=== PATIENT | male | born 1965 | race African-American/Black ===

== ENCOUNTER 2017-09-18 12:15 | Emergency (ER) | payer MEDICAID ==
[~2017-09-18] VITALS: Ht 180.3 cm; Wt 82.0 kg
[~2017-09-18 12:15] MED LIST: AMLO10TA80 PO; HYDR100T26 PO; KEPP500 PO; LISI-604 PO; NIFE60TA35 PO; PHEN100C4 PO; REN800 PO
[2017-09-18 14:17] LABS: HEMATOCRIT. 34.4 % (42.0-52.0); HEMOGLOBIN. 10.8 g/dL (14.0-18.0); MEAN CORPUSCULAR HEMOGLOBIN 26.5 pg (28.0-32.0); MEAN CORPUSCULAR VOLUME 84.1 fL (80.0-94.0); MEAN PLATELET VOLUME 8.3 fl (7.4-10.4); PLATELET 79 x1000/uL (130-400); RED BLOOD CELL COUNT 4.08 mill/uL (4.7-6.1); RED CELL DISTRIBUTION WIDTH 19.8 % (11.6-14.6)
[2017-09-18 14:51] LABS: PLATELET ESTIMATE DECREASED
[2017-09-18] MEDS ORDERED: SODIUM POLYSTYRENE SULFONATE 15 G/60 ML BOT PO ONE (16:15)
[2017-09-18 16:39] VITALS: BP 157/87
== END 2017-09-18 16:43 | disposition home or self-care (01) ==
LOC: ER 12:22
DX: R53.1 Weakness (principal); N18.6 End stage renal disease; Z99.2 Dependence on renal dialysis; Z88.5 Allergy status to narcotic agent; Z91.15 Patient's noncompliance with renal dialysis
CPT/HCPCS: 36415; 71045; 80048; 82962; 85025; 99285

== ENCOUNTER 2017-10-24 07:06 | Inpatient (IN) | payer MEDICAID ==
[~2017-10-24] VITALS: Ht 180.3 cm; Wt 82.7 kg
[2017-10-24 08:27] LABS: BG CARBOXYHEMOGLOBIN 1.1 % (0.5-1.5); BG DEOXYHEMOGLOBIN 6.1 % (0.0-5.0); BG HCO3 ACT 18.8 mmol/L (22.0-26.0); BG METHEMOGLOBIN 0.2 % (0.0-1.5); BG OXYGEN SATURATION 93.8 % (92.0-98.5); BG OXYHEMOGLOBIN 92.6 % (94.0-97.0); BG PCO2 34.9 mmHg (35.0-45.0); BG PH 7.349 (7.350-7.450); BG PO2 77.4 mmHg (75.0-100.0); BG SAMPLE SITE RIGHT BRACHIAL; BG TOTAL HEMOGLOBIN 12.9 g/dL (12.0-18.0); BG VENT MODE ROOM AIR
[2017-10-24] MEDS ORDERED: SODIUM BICARBONATE 8.4% 1 MEQ/ML 50ML SYR IV ONE (08:45)
[2017-10-24] MEDS ORDERED: INSULIN REGULAR (HUMULIN R) 300UNITS/3ML IV ONE (09:45)
[2017-10-24] MEDS ORDERED: DEXTROSE 50% WATER 50ML SYRINGE IV ONE (09:45)
[2017-10-24] MEDS ORDERED: CALCIUM CHLORIDE 1GM/10ML SYR IV ONE (09:45)
[2017-10-24] MEDS ORDERED: HEPARIN 100 UNITS/1 ML VIAL IVF STA (10:17)
[2017-10-24 10:54] LABS: HEMATOCRIT. 29.4 % (42.0-52.0); HEMOGLOBIN. 9.2 g/dL (14.0-18.0); MEAN CORPUSCULAR HEMOGLOBIN 25.7 pg (28.0-32.0); MEAN CORPUSCULAR VOLUME 82.1 fL (80.0-94.0); MEAN PLATELET VOLUME 8.8 fl (7.4-10.4); PLATELET 80 x1000/uL (130-400); RED BLOOD CELL COUNT 3.58 mill/uL (4.7-6.1); RED CELL DISTRIBUTION WIDTH 18.6 % (11.6-14.6)
[2017-10-24 10:59] LABS: CHLORIDE 102 mEq/L (98-107)
[2017-10-24 11:01] LABS: INR 1.1; PROTHROMBIN TIME 11.8 sec (9.4-11.6)
[2017-10-24 11:07] LABS: PHOSPHORUS 5.6 mg/dL (2.5-4.9)
[2017-10-24] MEDS ORDERED: LIDOCAINE HCL 1% 20ML VIAL (Pyxis) INJ ONE (11:18)
[2017-10-24] MEDS ORDERED: SODIUM BICARBONATE 4% (2.4MEQ) 5ML VIAL IV ONE (11:18)
[2017-10-24 12:03] LABS: PLATELET ESTIMATE DECREASED
[2017-10-24] MEDS ORDERED: PHENYTOIN SODIUM 1,000 MG in SODIUM CHLORIDE 0.9% 100 ML IV ONE (12:15)
[2017-10-24] MEDS ORDERED: HYDROCODONE/ACETAMINOPHEN 5/325MG TABLET PO PRN (13:45)
[2017-10-24] MEDS ORDERED: CLONIDINE 0.1MG TABLET PO PRN (13:45)
[2017-10-24 14:30] VITALS: BP 157/84
[2017-10-24 15:08] VITALS: BP 157/84
[2017-10-24] MEDS: DIPHENHYDRAMINE 50MG/ML VIAL IV PRN ×2 (15:47→22:03)
[2017-10-24] MEDS: MORPHINE SULFATE 4 MG/ML CPJ (NOT FOR IM USE) IV PRN ×2 (15:48→22:03)
[2017-10-24 16:00] VITALS: BP 149/80
[2017-10-24] MEDS: SEVELAMER CARBONATE 800 MG TABLET PO SCH (18:10)
[2017-10-24] MEDS: ONDANSETRON HCL 4MG/2ML VIAL IV PRN (19:16)
[2017-10-24 20:00] VITALS: BP 129/67
[2017-10-24] MEDS: LEVETIRACETAM 500MG TABLET PO SCH (21:00)
[2017-10-24] MEDS: PHENYTOIN SODIUM EXTENDED 100MG CAPSULE PO SCH (22:00)
[2017-10-25] VITALS: BP 101/51
[2017-10-25] MEDS ORDERED: MORPHINE SULFATE 4 MG/ML CPJ (NOT FOR IM USE) IV NR (00:30)
[2017-10-25 04:00] VITALS: BP 140/75
[2017-10-25] MEDS: PHENYTOIN SODIUM EXTENDED 100MG CAPSULE PO SCH ×3 (06:05→20:21)
[2017-10-25] MEDS: MORPHINE SULFATE 4 MG/ML CPJ (NOT FOR IM USE) IV PRN ×3 (06:05→20:13)
[2017-10-25] MEDS: DIPHENHYDRAMINE 50MG/ML VIAL IV PRN ×2 (06:06→20:12)
[2017-10-25 06:56] LABS: HEMATOCRIT. 27.3 % (42.0-52.0); HEMOGLOBIN. 8.8 g/dL (14.0-18.0); MEAN CORPUSCULAR HEMOGLOBIN 26.4 pg (28.0-32.0); MEAN CORPUSCULAR VOLUME 82.3 fL (80.0-94.0); MEAN PLATELET VOLUME 9.3 fl (7.4-10.4); PLATELET 81 x1000/uL (130-400); RED BLOOD CELL COUNT 3.32 mill/uL (4.7-6.1); RED CELL DISTRIBUTION WIDTH 18.8 % (11.6-14.6)
[2017-10-25] MEDS: SEVELAMER CARBONATE 800 MG TABLET PO SCH ×3 (07:47→18:15)
[2017-10-25 08:00] VITALS: BP 130/70
[2017-10-25] MEDS: FOLIC ACID/VITAMIN B COMP W-C TABLET PO SCH (09:32)
[2017-10-25] MEDS: LEVETIRACETAM 500MG TABLET PO SCH ×2 (09:33→20:21)
[2017-10-25 10:31] LABS: PLATELET ESTIMATE DECREASED
[2017-10-25 12:00] VITALS: BP 120/64
[2017-10-25 16:00] VITALS: BP 113/57
[2017-10-25 20:00] VITALS: BP 121/66
[2017-10-26] VITALS: BP 123/72
[2017-10-26 04:00] VITALS: BP 144/81
[2017-10-26] MEDS: MORPHINE SULFATE 4 MG/ML CPJ (NOT FOR IM USE) IV PRN ×3 (04:40→19:51)
[2017-10-26] MEDS: DIPHENHYDRAMINE 50MG/ML VIAL IV PRN ×3 (04:40→19:51)
[2017-10-26] MEDS: PHENYTOIN SODIUM EXTENDED 100MG CAPSULE PO SCH ×3 (05:44→22:14)
[2017-10-26 08:00] VITALS: BP 163/87
[2017-10-26] MEDS ORDERED: VANCOMYCIN 1250MG in DEXTROSE 5% WATER 250ML IV NR (08:00)
[2017-10-26] MEDS: LEVETIRACETAM 500MG TABLET PO SCH ×2 (08:41→22:14)
[2017-10-26] MEDS: FOLIC ACID/VITAMIN B COMP W-C TABLET PO SCH (08:41)
[2017-10-26] MEDS: SEVELAMER CARBONATE 800 MG TABLET PO SCH ×3 (08:42→17:17)
[2017-10-26 12:00] VITALS: BP 116/75
[2017-10-26] MEDS ORDERED: HEPARIN 5000 UNITS/ML VIAL IV SCH (12:30)
[2017-10-26 16:00] VITALS: BP 116/74
[2017-10-26 17:02] LABS: HEMATOCRIT. 28.1 % (42.0-52.0); MEAN CORPUSCULAR HEMOGLOBIN 26.3 pg (28.0-32.0); MEAN CORPUSCULAR VOLUME 82.2 fL (80.0-94.0); MEAN PLATELET VOLUME 9.2 fl (7.4-10.4); PLATELET 94 x1000/uL (130-400); RED BLOOD CELL COUNT 3.42 mill/uL (4.7-6.1); RED CELL DISTRIBUTION WIDTH 18.7 % (11.6-14.6)
[2017-10-26 17:40] LABS: PLATELET ESTIMATE DECREASED
[2017-10-26 20:00] VITALS: BP 130/67
[2017-10-27] VITALS: BP 136/67
[2017-10-27] MEDS: MORPHINE SULFATE 4 MG/ML CPJ (NOT FOR IM USE) IV PRN ×6 (03:10→23:49)
[2017-10-27] MEDS: DIPHENHYDRAMINE 50MG/ML VIAL IV PRN ×2 (03:11→17:16)
[2017-10-27 04:00] VITALS: BP 131/74
[2017-10-27] MEDS: PHENYTOIN SODIUM EXTENDED 100MG CAPSULE PO SCH ×3 (06:09→21:10)
[2017-10-27 08:00] VITALS: BP 131/72
[2017-10-27] MEDS: LEVETIRACETAM 500MG TABLET PO SCH ×2 (08:56→21:10)
[2017-10-27] MEDS: FOLIC ACID/VITAMIN B COMP W-C TABLET PO SCH (08:56)
[2017-10-27] MEDS: SEVELAMER CARBONATE 800 MG TABLET PO SCH ×3 (08:56→17:16)
[2017-10-27] MEDS ORDERED: HYDROCODONE/ACETAMINOPHEN 10/325MG TABLET PO PRN (11:15)
[2017-10-27] MEDS: LINEZOLID 600 MG PREMIX 300 ML IV SCH ×2 (11:18→23:16)
[2017-10-27 12:00] VITALS: BP 126/66
[2017-10-27 15:36] VITALS: BP 125/74
[2017-10-27 19:42] LABS: INR 1.2; PROTHROMBIN TIME 12.2 sec (9.4-11.6)
[2017-10-27 20:00] VITALS: BP 115/68
[2017-10-28] VITALS (7 sets, daily range): BP systolic 113–148; BP diastolic 58–77
[2017-10-28] MEDS: MORPHINE SULFATE 4 MG/ML CPJ (NOT FOR IM USE) IV PRN ×3 (03:05→11:47)
[2017-10-28] MEDS: PHENYTOIN SODIUM EXTENDED 100MG CAPSULE PO SCH (06:00)
[2017-10-28] MEDS: SEVELAMER CARBONATE 800 MG TABLET PO SCH ×3 (08:10→17:45)
[2017-10-28] MEDS: DIPHENHYDRAMINE 50MG/ML VIAL IV PRN ×3 (08:25→23:49)
[2017-10-28] MEDS: FOLIC ACID/VITAMIN B COMP W-C TABLET PO SCH (09:00)
[2017-10-28] MEDS ORDERED: IPRATROPIUM/ALBUTEROL 0.5-3(2.5)MG/3ML NEB HHN PRN (09:00)
[2017-10-28] MEDS ORDERED: BACITRACIN 50,000 UNITS/VIAL ONE (09:03)
[2017-10-28] MEDS ORDERED: THROMBIN (BOVINE) 5000 UNITS/VIAL TOP ONE (09:03)
[2017-10-28] MEDS ORDERED: GELATIN SPONGE,ABSORBABLE SZ 100 ONE (09:03)
[2017-10-28] MEDS ORDERED: NORMAL SALINE 0.9% 10 ML SYR ONE (09:03)
[2017-10-28 09:51] LABS: HEMATOCRIT. 27.4 % (42.0-52.0); HEMOGLOBIN. 8.8 g/dL (14.0-18.0); MEAN CORPUSCULAR HEMOGLOBIN 26.4 pg (28.0-32.0); MEAN CORPUSCULAR VOLUME 82.2 fL (80.0-94.0); MEAN PLATELET VOLUME 8.9 fl (7.4-10.4); PLATELET 88 x1000/uL (130-400); RED BLOOD CELL COUNT 3.34 mill/uL (4.7-6.1); RED CELL DISTRIBUTION WIDTH 18.3 % (11.6-14.6)
[2017-10-28] MEDS: LINEZOLID 600 MG PREMIX 300 ML IV SCH ×2 (11:45→23:19)
[2017-10-28] MEDS: PHENYTOIN SODIUM 100MG/2ML VIAL IV SCH ×2 (14:12→21:51)
[2017-10-28] MEDS: LEVETIRACETAM 500MG PREMIX 100 ML IV SCH ×2 (14:13→23:15)
[2017-10-28 16:30] LABS: PLATELET ESTIMATE DECREASED
[2017-10-28] MEDS: HYDROMORPHONE HCL/PF 2MG/ML CPJ IV PRN ×2 (17:51→20:34)
[2017-10-29] VITALS (48 sets, daily range): BP systolic 124–198; BP diastolic 60–113
[2017-10-29] MEDS: HYDROMORPHONE HCL/PF 2MG/ML CPJ IV PRN ×3 (02:08→12:33)
[2017-10-29] MEDS: DIPHENHYDRAMINE 50MG/ML VIAL IV PRN ×2 (05:46→16:28)
[2017-10-29] MEDS: PHENYTOIN SODIUM 100MG/2ML VIAL IV SCH ×3 (06:24→22:15)
[2017-10-29] MEDS: SEVELAMER CARBONATE 800 MG TABLET PO SCH ×3 (08:10→19:13)
[2017-10-29] MEDS: FOLIC ACID/VITAMIN B COMP W-C TABLET PO SCH (09:00)
[2017-10-29] MEDS ORDERED: THROMBIN (BOVINE) 5000 UNITS/VIAL TOP ONE (09:18)
[2017-10-29] MEDS ORDERED: GELATIN SPONGE,ABSORBABLE SZ 100 ONE (09:18)
[2017-10-29] MEDS ORDERED: BACITRACIN 50,000 UNITS/VIAL ONE (09:19)
[2017-10-29] MEDS ORDERED: NORMAL SALINE 0.9% 10 ML SYR ONE (09:19)
[2017-10-29] MEDS ORDERED: SODIUM CHLORIDE 0.9% 2,000 ML ONE (09:19)
[2017-10-29] MEDS ORDERED: PROPOFOL 200MG/20ML VIAL IV ONE (09:42)
[2017-10-29] MEDS ORDERED: VECURONIUM BROMIDE 10 MG/VIAL IV ONE (09:42)
[2017-10-29] MEDS ORDERED: SUCCINYLCHOLINE CHLORIDE 200MG/10ML VIAL IV ONE (09:42)
[2017-10-29] MEDS ORDERED: DEXTROSE 50% WATER 50ML SYRINGE IV ONE (09:59)
[2017-10-29] MEDS ORDERED: FENTANYL CITRATE/PF 50MCG/ML 2ML VIAL ONE (10:08)
[2017-10-29] MEDS: LEVETIRACETAM 500MG PREMIX 100 ML IV SCH ×2 (11:00→22:16)
[2017-10-29] MEDS: LINEZOLID 600 MG PREMIX 300 ML IV SCH ×2 (11:00→22:16)
[2017-10-29] MEDS ORDERED: GLYCOPYRROLATE 0.2 MG/ML 2ML VIAL ONE (11:48)
[2017-10-29] MEDS ORDERED: NEOSTIGMINE METHYLSULFATE 1MG/ML 10 ML VIAL ONE (11:48)
[2017-10-29] MEDS: DEXT 5%/LACTATED RINGERS 1,000 ML IV SCH (12:30)
[2017-10-29] MEDS: NICARDIPINE 100 MG in SODIUM CHLORIDE 0.9% 60 ML IV PRN (12:30)
[2017-10-29] MEDS ORDERED: DIPHENHYDRAMINE INJ IV PRN (13:00)
[2017-10-29] MEDS ORDERED: NALOXONE INJ IV PRN (13:00)
[2017-10-29] MEDS ORDERED: ONDANSETRON INJ IV PRN (13:00)
[2017-10-29 13:11] LABS: HIV SCREEN 4G Non Reactive (Non Reactive)
[2017-10-29] MEDS: HYDROMORPHONE PCA 10MG/50ML IV PRN (13:15)
[2017-10-29] MEDS: AMLODIPINE 2.5MG TABLET PO SCH (20:29)
[2017-10-30] VITALS (98 sets, daily range): BP systolic 113–162; BP diastolic 59–98
[2017-10-30] MEDS: NICARDIPINE 100 MG in SODIUM CHLORIDE 0.9% 60 ML IV PRN (03:09)
[2017-10-30 05:56] LABS: HEMATOCRIT. 28.8 % (42.0-52.0); HEMOGLOBIN. 9.1 g/dL (14.0-18.0); MEAN CORPUSCULAR HEMOGLOBIN 26.1 pg (28.0-32.0); MEAN CORPUSCULAR VOLUME 82.5 fL (80.0-94.0); MEAN PLATELET VOLUME 8.6 fl (7.4-10.4); PLATELET 104 x1000/uL (130-400); RED BLOOD CELL COUNT 3.49 mill/uL (4.7-6.1); RED CELL DISTRIBUTION WIDTH 18.4 % (11.6-14.6)
[2017-10-30] MEDS: SEVELAMER CARBONATE 800 MG TABLET PO SCH ×3 (06:11→17:00)
[2017-10-30] MEDS: PHENYTOIN SODIUM 100MG/2ML VIAL IV SCH ×3 (06:11→21:26)
[2017-10-30] MEDS: AMLODIPINE 2.5MG TABLET PO SCH ×2 (09:00→21:26)
[2017-10-30] MEDS: BENAZEPRIL 20MG TABLET PO SCH (09:00)
[2017-10-30] MEDS: FOLIC ACID/VITAMIN B COMP W-C TABLET PO SCH (09:00)
[2017-10-30] MEDS: HYDROMORPHONE HCL/PF 2MG/ML CPJ IV PRN (09:01)
[2017-10-30] MEDS: DEXT 5%/LACTATED RINGERS 1,000 ML IV SCH (10:00)
[2017-10-30] MEDS: LEVETIRACETAM 500MG PREMIX 100 ML IV SCH (11:00)
[2017-10-30 11:24] LABS: PLATELET ESTIMATE SLIGHTLY DECREASED
[2017-10-30] MEDS: LINEZOLID 600 MG PREMIX 300 ML IV SCH ×2 (12:00→22:33)
[2017-10-30] MEDS: LEVETIRACETAM 500MG in SODIUM CHLORIDE 0.9% 100ML IV SCH (22:33)
[2017-10-31] VITALS (80 sets, daily range): BP systolic 100–182; BP diastolic 46–118
[2017-10-31 05:32] LABS: HEMATOCRIT. 27.2 % (42.0-52.0); HEMOGLOBIN. 8.7 g/dL (14.0-18.0); MEAN CORPUSCULAR HEMOGLOBIN 26.5 pg (28.0-32.0); MEAN CORPUSCULAR VOLUME 83.3 fL (80.0-94.0); MEAN PLATELET VOLUME 8.4 fl (7.4-10.4); PLATELET 84 x1000/uL (130-400); RED BLOOD CELL COUNT 3.27 mill/uL (4.7-6.1); RED CELL DISTRIBUTION WIDTH 18.8 % (11.6-14.6)
[2017-10-31] MEDS: HYDROMORPHONE HCL/PF 2MG/ML CPJ IV PRN ×3 (05:35→18:51)
[2017-10-31] MEDS: DEXT 5%/LACTATED RINGERS 1,000 ML IV SCH ×2 (05:35→22:37)
[2017-10-31] MEDS: PHENYTOIN SODIUM 100MG/2ML VIAL IV SCH ×3 (05:35→22:37)
[2017-10-31] MEDS: HYDROMORPHONE PCA 10MG/50ML IV PRN (05:51)
[2017-10-31] MEDS: SEVELAMER CARBONATE 800 MG TABLET PO SCH ×3 (07:04→18:52)
[2017-10-31] MEDS: FOLIC ACID/VITAMIN B COMP W-C TABLET PO SCH (09:03)
[2017-10-31 09:07] LABS: PLATELET ESTIMATE DECREASED
[2017-10-31] MEDS: AMLODIPINE 2.5MG TABLET PO SCH ×2 (09:11→21:00)
[2017-10-31] MEDS: BENAZEPRIL 20MG TABLET PO SCH (11:08)
[2017-10-31] MEDS: LINEZOLID 600 MG PREMIX 300 ML IV SCH ×2 (12:02→22:40)
[2017-10-31] MEDS: LEVETIRACETAM 500MG in SODIUM CHLORIDE 0.9% 100ML IV SCH (12:02)
[2017-11-01] MEDS: LEVETIRACETAM 500MG in SODIUM CHLORIDE 0.9% 100ML IV SCH ×2 (01:35→16:17)
[2017-11-01 05:08] VITALS: BP 128/63
[2017-11-01] MEDS: HYDROMORPHONE HCL/PF 2MG/ML CPJ IV PRN ×3 (05:27→20:54)
[2017-11-01] MEDS: PHENYTOIN SODIUM 100MG/2ML VIAL IV SCH ×3 (05:33→22:09)
[2017-11-01 06:34] LABS: BASOPHILS % 0.5 % (0.0-2.0); EOSINOPHILS % 8.8 % (0.0-5.0); HEMATOCRIT. 26.6 % (42.0-52.0); HEMOGLOBIN. 8.5 g/dL (14.0-18.0); LYMPHOCYTES % 15.1 % (20.0-50.0); MEAN CORPUSCULAR HEMOGLOBIN 26.8 pg (28.0-32.0); MEAN CORPUSCULAR VOLUME 83.8 fL (80.0-94.0); MEAN PLATELET VOLUME 8.1 fl (7.4-10.4); MONOCYTES % 13.8 % (2.0-8.0); NEUTROPHILS % 61.8 % (40.0-76.0); PLATELET 82 x1000/uL (130-400); RED BLOOD CELL COUNT 3.17 mill/uL (4.7-6.1); RED CELL DISTRIBUTION WIDTH 18.6 % (11.6-14.6)
[2017-11-01 08:00] VITALS: BP 130/73
[2017-11-01] MEDS: FOLIC ACID/VITAMIN B COMP W-C TABLET PO SCH (08:27)
[2017-11-01] MEDS: BENAZEPRIL 20MG TABLET PO SCH (08:27)
[2017-11-01] MEDS: SEVELAMER CARBONATE 800 MG TABLET PO SCH ×4 (08:27→18:34)
[2017-11-01] MEDS: AMLODIPINE 2.5MG TABLET PO SCH ×2 (08:28→22:10)
[2017-11-01] MEDS: HYDROMORPHONE PCA 10MG/50ML IV PRN ×2 (08:31→08:44)
[2017-11-01] MEDS: DIPHENHYDRAMINE 50MG/ML VIAL IV PRN (10:15)
[2017-11-01] MEDS: LINEZOLID 600 MG PREMIX 300 ML IV SCH ×2 (14:15→22:11)
[2017-11-01 16:00] VITALS: BP 128/76
[2017-11-01 20:00] VITALS: BP 144/73
[2017-11-02] VITALS: BP 135/83
[2017-11-02] MEDS: HYDROMORPHONE HCL/PF 2MG/ML CPJ IV PRN ×5 (00:54→20:14)
[2017-11-02] MEDS: LEVETIRACETAM 500MG in SODIUM CHLORIDE 0.9% 100ML IV SCH ×2 (02:00→16:24)
[2017-11-02 04:00] VITALS: BP 115/35
[2017-11-02] MEDS: PHENYTOIN SODIUM 100MG/2ML VIAL IV SCH ×3 (05:02→21:32)
[2017-11-02 08:00] VITALS: BP 114/72
[2017-11-02] MEDS: FOLIC ACID/VITAMIN B COMP W-C TABLET PO SCH (09:01)
[2017-11-02] MEDS: SEVELAMER CARBONATE 800 MG TABLET PO SCH ×3 (09:02→18:49)
[2017-11-02] MEDS: AMLODIPINE 2.5MG TABLET PO SCH ×2 (09:11→20:10)
[2017-11-02] MEDS: BENAZEPRIL 20MG TABLET PO SCH (09:12)
[2017-11-02 12:00] VITALS: BP 135/69
[2017-11-02] MEDS ORDERED: HYDROMORPHONE HCL/PF 2MG/ML CPJ IV PRN (12:00)
[2017-11-02] MEDS: LINEZOLID 600 MG PREMIX 300 ML IV SCH ×2 (13:17→23:51)
[2017-11-02 16:00] VITALS: BP 137/79
[2017-11-02 20:00] VITALS: BP 160/74
[2017-11-03] VITALS: BP 122/75
[2017-11-03] MEDS: HYDROMORPHONE HCL/PF 2MG/ML CPJ IV PRN ×6 (00:35→20:50)
[2017-11-03] MEDS: LEVETIRACETAM 500MG in SODIUM CHLORIDE 0.9% 100ML IV SCH ×2 (02:49→18:04)
[2017-11-03 04:00] VITALS: BP 125/78
[2017-11-03] MEDS: PHENYTOIN SODIUM 100MG/2ML VIAL IV SCH ×3 (05:07→21:44)
[2017-11-03 08:00] VITALS: BP 128/74
[2017-11-03] MEDS: FOLIC ACID/VITAMIN B COMP W-C TABLET PO SCH (08:31)
[2017-11-03] MEDS: SEVELAMER CARBONATE 800 MG TABLET PO SCH ×3 (08:31→17:00)
[2017-11-03] MEDS: BENAZEPRIL 20MG TABLET PO SCH (09:00)
[2017-11-03] MEDS: AMLODIPINE 2.5MG TABLET PO SCH ×2 (09:00→20:59)
[2017-11-03] MEDS: LINEZOLID 600 MG PREMIX 300 ML IV SCH ×3 (10:14→22:14)
[2017-11-03] MEDS: DIPHENHYDRAMINE 50MG/ML VIAL IV PRN (11:11)
[2017-11-03 12:00] VITALS: BP 144/75
[2017-11-03] MEDS ORDERED: SODIUM BICARBONATE 4% (2.4MEQ) 5ML VIAL IV ONE (14:39)
[2017-11-03] MEDS ORDERED: LIDOCAINE HCL/PF 1% 10 MG/ML 5ML VIAL ONE (14:39)
[2017-11-03 16:00] VITALS: BP 144/86
[2017-11-03] MEDS: ONDANSETRON HCL 4MG/2ML VIAL IV PRN (17:01)
[2017-11-03 17:27] LABS: HEMATOCRIT. 26.8 % (42.0-52.0); HEMOGLOBIN. 8.7 g/dL (14.0-18.0); MEAN CORPUSCULAR HEMOGLOBIN 26.5 pg (28.0-32.0); MEAN CORPUSCULAR VOLUME 81.9 fL (80.0-94.0); MEAN PLATELET VOLUME 7.9 fl (7.4-10.4); PLATELET 72 x1000/uL (130-400); RED BLOOD CELL COUNT 3.28 mill/uL (4.7-6.1); RED CELL DISTRIBUTION WIDTH 18.2 % (11.6-14.6)
[2017-11-03 19:47] LABS: PLATELET ESTIMATE MARKEDLY DECREASED
[2017-11-03 20:00] VITALS: BP 187/84
[2017-11-03] MEDS: MAGNESIUM/ALUMINUM HYDROXIDE/SIMETHICONE 30ML UDC PO PRN (20:15)
[2017-11-04] VITALS: BP 141/69
[2017-11-04] MEDS: HYDROMORPHONE HCL/PF 2MG/ML CPJ IV PRN ×5 (00:57→18:38)
[2017-11-04] MEDS: LEVETIRACETAM 500MG in SODIUM CHLORIDE 0.9% 100ML IV SCH ×2 (01:21→14:55)
[2017-11-04 04:00] VITALS: BP 156/80
[2017-11-04] MEDS: PHENYTOIN SODIUM 100MG/2ML VIAL IV SCH ×3 (05:16→20:51)
[2017-11-04 07:12] LABS: MEAN CORPUSCULAR HEMOGLOBIN 26.3 pg (28.0-32.0); MEAN CORPUSCULAR VOLUME 82.1 fL (80.0-94.0); MEAN PLATELET VOLUME 8.2 fl (7.4-10.4); PLATELET 69 x1000/uL (130-400); RED BLOOD CELL COUNT 3.41 mill/uL (4.7-6.1); RED CELL DISTRIBUTION WIDTH 17.5 % (11.6-14.6)
[2017-11-04 08:00] VITALS: BP 136/77
[2017-11-04] MEDS: FOLIC ACID/VITAMIN B COMP W-C TABLET PO SCH (08:46)
[2017-11-04] MEDS: BENAZEPRIL 20MG TABLET PO SCH (08:46)
[2017-11-04] MEDS: AMLODIPINE 2.5MG TABLET PO SCH ×2 (08:47→20:49)
[2017-11-04] MEDS: SEVELAMER CARBONATE 800 MG TABLET PO SCH ×3 (08:47→17:40)
[2017-11-04] MEDS: LINEZOLID 600 MG PREMIX 300 ML IV SCH ×2 (11:42→22:36)
[2017-11-04 12:00] VITALS: BP 131/67
[2017-11-04 12:59] LABS: PLATELET ESTIMATE DECREASED
[2017-11-04 16:09] VITALS: BP 139/61
[2017-11-04 20:00] VITALS: BP 120/68
[2017-11-05] VITALS (17 sets, daily range): BP systolic 98–154; BP diastolic 41–84
[2017-11-05] MEDS: HYDROMORPHONE HCL/PF 2MG/ML CPJ IV PRN ×7 (00:26→22:40)
[2017-11-05] MEDS: LEVETIRACETAM 500MG in SODIUM CHLORIDE 0.9% 100ML IV SCH (02:15)
[2017-11-05] MEDS: PHENYTOIN SODIUM 100MG/2ML VIAL IV SCH ×3 (05:02→22:40)
[2017-11-05 07:05] LABS: HEMATOCRIT. 28.4 % (42.0-52.0); HEMOGLOBIN. 9.1 g/dL (14.0-18.0); MEAN CORPUSCULAR VOLUME 81.4 fL (80.0-94.0); MEAN PLATELET VOLUME 7.8 fl (7.4-10.4); PLATELET 79 x1000/uL (130-400); RED BLOOD CELL COUNT 3.49 mill/uL (4.7-6.1); RED CELL DISTRIBUTION WIDTH 18.1 % (11.6-14.6)
[2017-11-05] MEDS ORDERED: CEFAZOLIN 1000MG PREMIX 50 ML IV ONE (08:11)
[2017-11-05] MEDS ORDERED: LIDOCAINE HCL/PF 1% 10 MG/ML 5ML VIAL ONE (08:11)
[2017-11-05] MEDS ORDERED: SODIUM BICARBONATE 4% (2.4MEQ) 5ML VIAL IV ONE (08:12)
[2017-11-05] MEDS: BENAZEPRIL 20MG TABLET PO SCH (08:45)
[2017-11-05] MEDS: AMLODIPINE 2.5MG TABLET PO SCH ×2 (08:45→21:00)
[2017-11-05] MEDS: FOLIC ACID/VITAMIN B COMP W-C TABLET PO SCH (08:45)
[2017-11-05] MEDS: SEVELAMER CARBONATE 800 MG TABLET PO SCH ×3 (08:45→17:40)
[2017-11-05] MEDS: LINEZOLID 600 MG PREMIX 300 ML IV SCH ×2 (10:26→22:48)
[2017-11-05 11:45] LABS: PLATELET ESTIMATE SLIGHTLY DECREASED
[2017-11-05] MEDS ORDERED: LACTULOSE 20G/30ML UDC PO PRN (12:30)
[2017-11-05] MEDS ORDERED: HEPARIN 1000 UNITS/ML 10ML ONE (12:43)
[2017-11-05] MEDS ORDERED: ONDANSETRON HCL 4MG/2ML VIAL ONE (13:31)
[2017-11-05] MEDS ORDERED: ONDANSETRON HCL 4MG/2ML VIAL IV ONE (13:45)
[2017-11-05] MEDS ORDERED: ONDANSETRON HCL 4MG/2ML VIAL IV SCH (14:00)
[2017-11-05] MEDS ORDERED: IOHEXOL-300 50 ML BOTTLE IV ONE (14:38)
[2017-11-05] MEDS: DOCUSATE SODIUM 100MG CAPSULE PO SCH (17:00)
[2017-11-05] MEDS: DIPHENHYDRAMINE 50MG/ML VIAL IV PRN (19:40)
[2017-11-05] MEDS: LEVETIRACETAM 500MG TABLET PO SCH (22:40)
[2017-11-06] VITALS (7 sets, daily range): BP systolic 97–131; BP diastolic 52–72
[2017-11-06] MEDS: HYDROMORPHONE HCL/PF 2MG/ML CPJ IV PRN ×3 (02:49→10:40)
[2017-11-06] MEDS: PHENYTOIN SODIUM 100MG/2ML VIAL IV SCH ×3 (05:57→21:17)
[2017-11-06 07:29] LABS: HEMATOCRIT. 27.1 % (42.0-52.0); HEMOGLOBIN. 8.6 g/dL (14.0-18.0); MEAN CORPUSCULAR VOLUME 82.1 fL (80.0-94.0); MEAN PLATELET VOLUME 8.5 fl (7.4-10.4); PLATELET 77 x1000/uL (130-400); RED BLOOD CELL COUNT 3.31 mill/uL (4.7-6.1); RED CELL DISTRIBUTION WIDTH 18.2 % (11.6-14.6)
[2017-11-06] MEDS: BENAZEPRIL 20MG TABLET PO SCH (08:16)
[2017-11-06] MEDS: SEVELAMER CARBONATE 800 MG TABLET PO SCH ×3 (08:17→16:13)
[2017-11-06] MEDS: DOCUSATE SODIUM 100MG CAPSULE PO SCH ×2 (08:17→16:13)
[2017-11-06] MEDS: FOLIC ACID/VITAMIN B COMP W-C TABLET PO SCH (08:17)
[2017-11-06] MEDS: LEVETIRACETAM 500MG TABLET PO SCH ×2 (08:17→21:17)
[2017-11-06] MEDS: AMLODIPINE 2.5MG TABLET PO SCH ×2 (08:18→21:17)
[2017-11-06 10:06] LABS: PLATELET ESTIMATE DECREASED
[2017-11-06] MEDS: LINEZOLID 600 MG PREMIX 300 ML IV SCH ×2 (11:06→22:43)
[2017-11-06] MEDS: HYDROCODONE/ACETAMINOPHEN 10/325MG TABLET PO PRN ×2 (16:19→21:17)
[2017-11-06] MEDS: MAGNESIUM/ALUMINUM HYDROXIDE/SIMETHICONE 30ML UDC PO PRN (20:35)
[2017-11-07] VITALS: BP 122/60
[2017-11-07] MEDS: HYDROCODONE/ACETAMINOPHEN 10/325MG TABLET PO PRN ×3 (01:28→10:43)
[2017-11-07 04:00] VITALS: BP 131/62
[2017-11-07] MEDS: PHENYTOIN SODIUM 100MG/2ML VIAL IV SCH ×2 (05:29→13:29)
[2017-11-07] MEDS: LEVETIRACETAM 500MG TABLET PO SCH (10:32)
[2017-11-07] MEDS: FOLIC ACID/VITAMIN B COMP W-C TABLET PO SCH (10:32)
[2017-11-07] MEDS: SEVELAMER CARBONATE 800 MG TABLET PO SCH ×2 (10:32→13:29)
[2017-11-07] MEDS: DOCUSATE SODIUM 100MG CAPSULE PO SCH (10:32)
[2017-11-07] MEDS: LINEZOLID 600 MG PREMIX 300 ML IV SCH (10:36)
[2017-11-07] MEDS: BENAZEPRIL 20MG TABLET PO SCH (10:47)
[2017-11-07] MEDS: AMLODIPINE 2.5MG TABLET PO SCH (10:47)
[2017-11-07] MEDS ORDERED: LOPERAMIDE 2 MG/10 ML UDC PO PRN (11:15)
[2017-11-07 12:00] VITALS: BP 160/88
[2017-11-07] MEDS: ONDANSETRON HCL 4MG/2ML VIAL IV PRN (12:25)
== END 2017-11-07 15:34 | disposition left against medical advice (07) | DRG 710 ==
LOC: ER 08:49 → 7WST 10:25 → EDBEDREQTM 10:29 → EDBEDREQ 10:29 → ENRESERV 12:17 → MICUNO 10-29 11:09 → 8WST 10-31 20:38
PROVIDERS: ADMIT Internal Medicine; ATTEND Internal Medicine
PROC: 02HV33Z Insertion of Infusion Device into Superior Vena Cava, Percutaneous Approach (ICD-10-PCS; 2017-10-24)
PROC: B5181ZA Fluoroscopy of Superior Vena Cava using Low Osmolar Contrast, Guidance (ICD-10-PCS; 2017-10-24)
PROC: B548ZZA Ultrasonography of Superior Vena Cava, Guidance (ICD-10-PCS; 2017-10-24)
PROC: 5A1D70Z Performance of Urinary Filtration, Intermittent, Less than 6 Hours Per Day (ICD-10-PCS; 2017-10-24)
PROC: 5A1D70Z Performance of Urinary Filtration, Intermittent, Less than 6 Hours Per Day (ICD-10-PCS; 2017-10-26)
PROC: 5A1D70Z Performance of Urinary Filtration, Intermittent, Less than 6 Hours Per Day (ICD-10-PCS; 2017-10-28)
PROC: 01NB0ZZ Release Lumbar Nerve, Open Approach (ICD-10-PCS; 2017-10-29)
PROC: 009U0ZZ Drainage of Spinal Canal, Open Approach (ICD-10-PCS; 2017-10-29)
PROC: 0SB40ZZ Excision of Lumbosacral Disc, Open Approach (ICD-10-PCS; principal; 2017-10-29 12:00)
PROC: 5A1D70Z Performance of Urinary Filtration, Intermittent, Less than 6 Hours Per Day (ICD-10-PCS; 2017-10-30)
PROC: 5A1D70Z Performance of Urinary Filtration, Intermittent, Less than 6 Hours Per Day (ICD-10-PCS; 2017-11-01)
PROC: 5A1D70Z Performance of Urinary Filtration, Intermittent, Less than 6 Hours Per Day (ICD-10-PCS; 2017-11-03)
PROC: 0JH63XZ Insertion of Tunneled Vascular Access Device into Chest Subcutaneous Tissue and Fascia, Percutaneous Approach (ICD-10-PCS; 2017-11-05)
PROC: 02H633Z Insertion of Infusion Device into Right Atrium, Percutaneous Approach (ICD-10-PCS; 2017-11-05)
PROC: B5181ZA Fluoroscopy of Superior Vena Cava using Low Osmolar Contrast, Guidance (ICD-10-PCS; 2017-11-05)
PROC: 5A1D70Z Performance of Urinary Filtration, Intermittent, Less than 6 Hours Per Day (ICD-10-PCS; 2017-11-05)
PROC: B548ZZA Ultrasonography of Superior Vena Cava, Guidance (ICD-10-PCS; 2017-11-05)
DX: A41.9 Sepsis, unspecified organism (principal); E43 Unspecified severe protein-calorie malnutrition; I13.2 Hypertensive heart and chronic kidney disease with heart failure and with stage 5 chronic kidney disease, or end stage renal disease; D61.818 Other pancytopenia; N18.6 End stage renal disease; I12.0 Hypertensive chronic kidney disease with stage 5 chronic kidney disease or end stage renal disease; M46.26 Osteomyelitis of vertebra, lumbar region; E87.5 Hyperkalemia; Z99.2 Dependence on renal dialysis; M46.47 Discitis, unspecified, lumbosacral region; G40.909 Epilepsy, unspecified, not intractable, without status epilepticus; E83.39 Other disorders of phosphorus metabolism; B96.89 Other specified bacterial agents as the cause of diseases classified elsewhere; Z60.2 Problems related to living alone; Z53.21 Procedure and treatment not carried out due to patient leaving prior to being seen by health care provider; E11.22 Type 2 diabetes mellitus with diabetic chronic kidney disease; B19.20 Unspecified viral hepatitis C without hepatic coma; I50.9 Heart failure, unspecified; K74.60 Unspecified cirrhosis of liver; Z86.73 Personal history of transient ischemic attack (TIA), and cerebral infarction without residual deficits; Z91.19 Patient's noncompliance with other medical treatment and regimen; Z94.0 Kidney transplant status; Z88.6 Allergy status to analgesic agent; Z79.899 Other long term (current) drug therapy; Z68.25 Body mass index [BMI] 25.0-25.9, adult
CPT/HCPCS: 36415; 36558; 36569; 36589; 36600; 71045; 72100; 72148; 74018; 75827; 76937; 77001; 80048; 80053; 80185; 82375; 82805; 82962; 83605; 83690; 83735; 84100; 84145; 84484; 85025; 85610; 85651; 85730; 86850; 86900; 87040; 87070; 87075; 87077; 87102; 87107; 87116; 87186; 87205; 88304; 88311; 93005; 93306; 93970; 95863; 95925; 95926; 95928; 95929; 96374; 96375; 97162; 97164; 97166; 97530; 99291; A4216; C1725; C1750; C1769; C1887; J0330; J0690; J1165; J1170; J1200; J1642; J1644; J1815; J1953; J2020; J2270; J2405; J2704; J2710; J3010; J3370; J3490; J7030; J7040; J7050; J7060; J7121; Q9967